=== PATIENT | female | born 1940 | race Hispanic/Latino ===

== ENCOUNTER 2023-03-16 16:41 | Emergency (ER) | payer OTHER, MEDICARE ==
[~2023-03-16] VITALS: Ht 154.9 cm; Wt 72.1 kg
[2023-03-16 16:46] VITALS: BP 182/78
[2023-03-16] MEDS ORDERED: ACETAMINOPHEN 325 MG TAB PO ONE (17:30)
[2023-03-16] MEDS ORDERED: NAPR-1192 PO (17:39)
== END 2023-03-16 18:23 | disposition home or self-care (01) ==
LOC: EDH 16:41
DX: S80.01XA Contusion of right knee, initial encounter (principal); S76.011A Strain of muscle, fascia and tendon of right hip, initial encounter; J45.909 Unspecified asthma, uncomplicated; K21.9 Gastro-esophageal reflux disease without esophagitis; W01.0XXA Fall on same level from slipping, tripping and stumbling without subsequent striking against object, initial encounter; Y93.89 Activity, other specified; Y92.89 Other specified places as the place of occurrence of the external cause; Y99.8 Other external cause status
CPT/HCPCS: 73562

== ENCOUNTER 2023-05-21 15:12 | Emergency (ER) | payer OTHER, MEDICARE ==
[~2023-05-21] VITALS: Ht 157.5 cm; Wt 63.5 kg
[~2023-05-21 15:12] MED LIST: NAPR-1192 PO
[2023-05-21] MEDS ORDERED: OCTYL 2-CYANOACRYLATE 1 EACH TP ONE (19:52)
[2023-05-21] MEDS ORDERED: BACITRACIN 1 EACH PACKET TP ONE (20:41)
[2023-05-21 20:59] VITALS: BP 146/62
[2023-05-21] MEDS ORDERED: ACETAMINOPHEN 325 MG TAB PO ONE (21:00)
== END 2023-05-21 21:12 | disposition home or self-care (01) ==
LOC: EDH 15:12
DX: S81.012A Laceration without foreign body, left knee, initial encounter (principal); E03.9 Hypothyroidism, unspecified; J45.909 Unspecified asthma, uncomplicated; F32.A Depression, unspecified; K21.9 Gastro-esophageal reflux disease without esophagitis; W01.10XA Fall on same level from slipping, tripping and stumbling with subsequent striking against unspecified object, initial encounter; Y93.89 Activity, other specified; Y92.89 Other specified places as the place of occurrence of the external cause; Y99.8 Other external cause status
CPT/HCPCS: 12002; 73562

== ENCOUNTER 2024-11-06 11:48 | Emergency (ER) | payer OTHER, MEDICARE ==
[~2024-11-06] VITALS: Ht 147.3 cm; Wt 49.9 kg
[2024-11-06] MEDS: morPHINE 2 MG SYG IVP ONE (12:23)
[2024-11-06] MEDS: ondanSETRON 4MG INJ IVP ONE (12:23)
--- NOTE | 2024-11-06 12:48 | HMCIMG ---
Exam Type: CT HEAD/BRAIN W/O CONTRAST Clinical Information: fall head injury Comparison: None CT Dose Index (CTDI): 57.33 mGy Dose Length Product (DLP): 956.79 total mGy-cm Findings: The examination shows atrophy. There is low attenuation throughout the periventricular white matter locations, consistent with chronic small vessel ischemic changes. No acute intra- or extra-axial fluid collections are seen. There is no evidence of acute or chronic hemorrhage. There is no mass effect or shift of midline structures. There are no areas to suggest acute infarct. The skull windows show no significant abnormalities. IMPRESSION: 1. ATROPHY AND CHRONIC SMALL VESSEL ISCHEMIC CHANGES. This study was performed using dose reduction techniques to include automated exposure control and/or adjustment of the mA and/or kV according to patient size.
--- NOTE | 2024-11-06 12:50 | HMCIMG ---
Exam Type: CT cervical spine without contrast Clinical Information: fall head injury Comparison: None Technique: Spiral axial images were performed from the base of the skull down to the thoracic vertebral bodies. Both sagittal and coronal reconstructions were performed. CT Dose Index (CTDI): 12.85 mGy Dose Length Product (DLP): 282.6 total Findings: There are degenerative changes. Degenerative disc disease is noted at multiple levels. There is adequate alignment and preservation of normal cervial lordosis. There is facet hypertrophy at multiple levels. IMPRESSION: Degenerative changes as noted. No acute pathology. No fractures seen. This study was performed using dose reduction techniques to include automated exposure control and/or adjustment of the mA and/or kV according to patient size.
--- NOTE | 2024-11-06 12:51 | HMCIMG ---
CT MAXILLOFACIAL W/O CONTRAST Indication: fall head injury Technique: Multiple thin section axial images were performed through the face and paranasal sinuses. Coronal reconstructions were performed in soft tissue and bone windows, as well as sagittal reconstructions. CT Dose Index (CTDI): 22.11 mGy Dose Length Product (DLP): 450.8 total mGy Findings: Paranasal sinuses are unremarkable. There is no evidence of facial fracture. Visualized soft tissues are unremarkable. Visualized intracranial contents are unremarkable. Impression: No acute abnormality of the face. This study was performed using dose reduction techniques to include automated exposure control and/or adjustment of the mA and/or kV according to patient size.
[2024-11-06] MEDS ORDERED: teTANUS/diphthERIA TOXOID [ADULT] 0.5 ML VIAL IM ONE (13:30)
--- NOTE | 2024-11-06 13:30 | HMCIMG ---
Exam Type: PELVIS 1-2VWS Clinical Information: fall Comparison: None Findings: There is osteopenia. The examination is otherwise unremarkable. No fractures or dislocations are seen. No radiopaque foreign bodies are noted. Soft tissues are preserved. IMPRESSION: Osteopenia. No acute pathology.
--- NOTE | 2024-11-06 13:32 | HMCIMG ---
Wrist 3 views- AP, lateral, oblique right History: fall Comparison: none Findings and impression: Osteopenia. Chondrocalcinosis. No acute fractures or dislocations.
--- NOTE | 2024-11-06 13:32 | HMCIMG ---
Exam Type: KNEE 3VWS LT Clinical Information: fall Comparison: None Findings: There is chondrocalcinosis. No fractures or dislocations are seen and the joint spaces are preserved. IMPRESSION: Chondrocalcinosis.
[2024-11-06] MEDS: ceFAZolin SODIUM 1 GM VIAL IVPB SCH (15:23)
--- NOTE | 2024-11-06 15:29 | ERN ---
General Chief Complaint: Mechanical Fall Stated Complaint: FALL Time Seen by MD: 11:52 Time Seen by Midlevel: 11:52 Source: patient History of Present Illness Initial Comments Patient is an 84-year-old female being brought in by EMS for evaluation following a mechanical ground level fall. Patient states she was going to a doctor's appointment when she accidentally tripped over her leg and fell onto the street. She has pain to her head and left knee. Denies any loss of consciousness. Denies being on blood thinners Allergies: Coded Allergies: No Known Allergies (Unverified Allergy, Unknown, 03/16/23) Home Meds Active Scripts Amoxicillin/Potassium Clav (Amox Tr-K Clv 875-125 mg Tab) 875 Mg-125 Mg Tablet, 1 EACH PO BID for 5 Days, #10 TAB 0 Refills Prov:HALI STOVER 11/06/24 Naproxen (Naproxen) 375 Mg Tablet, 375 MG PO BID for 10 Days, #20 TAB 0 Refills Prov:PERI BELL MD 03/16/23 Past Medical History Past Medical History: Arthritis Past Surgical History: Other Surgical History Other: HERNIA Social History Social History: Negative, Lives with family ROS Dictation CONSTITUTIONAL: Negative except for HPI HEAD/FACE: Negative except for HPI EENT: Negative except for HPI RESPIRATORY: Negative except for HPI GASTROINTESTINAL/ABDOMINAL: Negative except for HPI GENITOURINARY: Negative except for HPI MUSCULOSKELETAL: Negative except for HPI INTEGUMENTARY: Negative except for HPI NEUROLOGICAL/PSYCH: Negative except for HPI HEMATOLOGIC/LYMPHATIC: Negative except for HPI All Systems Negative, Except as noted above. 13 point review of systems assessed and all negative except for above. Physical Exam Physical Exam Dictation Vital Signs reviewed General Appearance: Alert, oriented x 3, no acute distress, well developed, nourished. Head and Face: Left forehead contusion Eyes: PERRL, pink conjunctivas, eyelid no trauma, anterior chamber with arcus senilis. Ears: Pinnas intact and no signs of trauma or erythema ear canals clear and no discharge TM no erythema Nose: No discharge, no bleeding. Oropharynx: Mouth normal, tongue pink, pharynx clear,no erythema, tonsils no exudates, no abscesses noted, mucous membrane moist Neck: Supple, non-tender, no thyromegaly, no masses, no JVD, no bruits Breast:Deferred Chest:No tenderness, no crepitus, no paradoxical movement, no retractions Lungs:Clear, well-ventilated, symmetric, no rales, no wheezing, no rhonchi, no stridor, good breath sounds bilaterally Heart: Regular rate, regular rhythm, no murmur, no gallops Vascular: no peripheral edema, Abdomen: Soft, positive bowel sounds, nondistended, no guarding, nontender, no rebound, no masses no hepatomegaly, no splenomegaly, no Thomas's sign, no hernias. Rectal: Deferred Genital: Deferred Neurological: Normal speech, motor function intact, sensory function intact Musculoskeletal: Neck nontender, full range of motion, back nontender, full range of motion, Extremities: Swelling and tenderness to the left wrist Skin: 2 cm linear laceration to the left forehead, 8 cm jagged laceration to the left knee. Lymphatic: Deferred MDM MDM: Differential diagnosis: There are no social concerns with this patient. Prescription drug management Prescriptions will include: Medical management and examination interpretation discussions were had by me with other qualified healthcare professionals as indicated for the patient's care. ED Course Orders Procedure Category Date Status Time Ct Cervical Spine W/O CT 11/06/24 Resulted Contrast 12:01 Ct Head/Brain W/O CT 11/06/24 Resulted Contrast 12:01 Ct Maxillofacial W/O CT 11/06/24 Resulted Contrast 12:01 Knee 3vws Lt RAD 11/06/24 Resulted 12:01 Pelvis 1-2vws RAD 11/06/24 Resulted 12:01 Wrist Comp 3+Vws Lt RAD 11/06/24 Resulted 12:01 Morphine 2mg Syg PHA 11/06/24 Complete (Morphine 2mg Syg) 12:30 Ondansetron 4mg Inj PHA 11/06/24 Complete (Zofran 4mg Inj) 12:30 Tetanus,Diphtheria PHA 11/06/24 Complete Tox [Adult] (Diphther 13:30 Cefazolin Sodium 1 Gm PHA 11/06/24 Complete Vial (Ancef 1 Gm V 15:30 Current Medications Medications (Trade) Dose Ordered Sig/Grupo Route PRN Reason Start Time Stop Time Status Last Admin Dose Admin Cefazolin Sodium (ANCEF 1 gm vial) 1 gm ONCE IVPB 11/06/24 15:30 11/06/24 16:34 DC 11/06/24 15:23 Morphine Sulfate (morPHINE 2MG SYG) 2 mg ONCE ONCE IVP 11/06/24 12:30 11/06/24 12:31 DC 11/06/24 12:23 Ondansetron HCl (zoFRAN 4MG INJ) 4 mg ONCE ONCE IVP 11/06/24 12:30 11/06/24 12:31 DC 11/06/24 12:23 Tetanus/ Diphtheria Toxoids Adsorbed (DiphthERIA-teTANUS TOXOID [ADULT]/ DECAVAC) 0.5 ml ONCE ONCE IM 11/06/24 13:30 11/06/24 13:25 DC Vital Signs Date Time Temp Pulse Resp B/P (MAP) Pulse Ox O2 Delivery O2 Flow Rate FiO2 11/06/24 15:31 98.2 81 14 145/78 98 Room Air* 0 11/06/24 12:55 98.2 84 14 153/59 100 Room Air* 0 11/06/24 11:49 98.2 92 14 174/74 99 Room Air 0 11/06/24 11:49 98.2 92 14 174/74 99 Room Air* 0 [address] [place] [id number] [place], [place] [id number] IMAGING REPORT Signed PATIENT: JOSE ELIAS CHENG MR#: [id number] : 1940 SEX: F AGE: 84 LOCATION: [facility] ORDER 1203 STATUS: [facility] REPORT#: [id number] SERVICE 1201 REASON: fall ORDERING PHYSICIAN: HALI STOVER PROCEDURE: WRST 3V LT - WRIST COMP 3+VWS LT Wrist 3 views- AP, lateral, oblique right History: fall Comparison: none Findings and impression: Osteopenia. Chondrocalcinosis. No acute fractures or dislocations. DICTATED BY: LARA MUELLER MD DATE: 11/06/24 1327 ELECTRONICALLY SIGNED BY: LARA MUELLRE MD DATE: 11/06/24 13[address] [place] [address] [place] [id number] IMAGING REPORT Signed PATIENT: JOSE ELIAS CHENG MR#: [id number] : 1940 SEX: F AGE: 84 LOCATION: [facility] ORDER 02 STATUS: [facility] REPORT#: [id number] SERVICE 120 REASON: fall ORDERING PHYSICIAN: HALI STOVER PROCEDURE: PELVIS - PELVIS 1-2VWS Exam Type: PELVIS 1-2VWS Clinical Information: fall Comparison: None Findings: There is osteopenia. The examination is otherwise unremarkable. No fractures or dislocations are seen. No radiopaque foreign bodies are noted. Soft tissues are preserved. IMPRESSION: Osteopenia. No acute pathology. DICTATED BY: LARA MUELLER MD DATE: 11/06/24 1327 ELECTRONICALLY SIGNED BY: LARA MUELLER MD DATE: 11/06/24 [address] [place] [phone] IMAGING REPORT Signed PATIENT: JOSE ELIAS CHENG MR#: [id number] : 1940 SEX: F AGE: 84 LOCATION: [facility] ORDER 120 STATUS: [facility] REPORT#: [id number] SERVICE 120 REASON: fall head injury ORDERING PHYSICIAN: HALI STOVER PROCEDURE: MAXFACI WO - CT MAXILLOFACIAL W/O CONTRAST CT MAXILLOFACIAL W/O CONTRAST Indication: fall head injury Technique: Multiple thin section axial images were performed through the face and paranasal sinuses. Coronal reconstructions were performed in soft tissue and bone windows, as well as sagittal reconstructions. CT Dose Index (CTDI): 22.11 mGy Dose Length Product (DLP): 450.8 total mGy Findings: Paranasal sinuses are unremarkable. There is no evidence of facial fracture. Visualized soft tissues are unremarkable. Visualized intracranial contents are unremarkable. Impression: No acute abnormality of the face. This study was performed using dose reduction techniques to include automated exposure control and/or adjustment of the mA and/or kV according to patient size. DICTATED BY: LARA MUELLER MD DATE: 11/06/24 1249 ELECTRONICALLY SIGNED BY: LARA MUELLER MD DATE: 11/06/24 125[address] [place] [address] [place] [id number] IMAGING REPORT Signed PATIENT: JOSE ELIAS CHENG MR#: [id number] : 1940 SEX: F AGE: 84 LOCATION: [facility] ORDER 1203 STATUS: [facility] REPORT#: [id number] SERVICE 120 REASON: fall ORDERING PHYSICIAN: HALI STOVER PROCEDURE: KNEE 3V LT - KNEE 3VWS LT Exam Type: KNEE 3VWS LT Clinical Information: fall Comparison: None Findings: There is chondrocalcinosis. No fractures or dislocations are seen and the joint spaces are preserved. IMPRESSION: Chondrocalcinosis. DICTATED BY: LARA MUELLER MD DATE: 11/06/24 1328 ELECTRONICALLY SIGNED BY: LARA MUELLER MD DATE: 11/06/24 1332 [place] [address] [id number] IMAGING REPORT Signed PATIENT: JOSE ELIAS CHENG MR#: [id number] : 1940 SEX: F AGE: 84 LOCATION: ED ORDER 120 STATUS: [facility] REPORT#: [id number] SERVICE 120 REASON: fall head injury ORDERING PHYSICIAN: HALI STOVER PROCEDURE: HEAD WO - CT HEAD/BRAIN W/O CONTRAST Exam Type: CT HEAD/BRAIN W/O CONTRAST Clinical Information: fall head injury Comparison: None CT Dose Index (CTDI): 57.33 mGy Dose Length Product (DLP): 956.79 total mGy-cm Findings: The examination shows atrophy. There is low attenuation throughout the periventricular white matter locations, consistent with chronic small vessel ischemic changes. No acute intra- or extra-axial fluid collections are seen. There is no evidence of acute or chronic hemorrhage. There is no mass effect or shift of midline structures. There are no areas to suggest acute infarct. The skull windows show no significant abnormalities. IMPRESSION: 1. ATROPHY AND CHRONIC SMALL VESSEL ISCHEMIC CHANGES. This study was performed using dose reduction techniques to include automated exposure control and/or adjustment of the mA and/or kV according to patient size. DICTATED BY: LARA MUELLER MD DATE: 11/06/241244 ELECTRONICALLY SIGNED BY: LARA MUELLER MD DATE: 11/06/241247 [place] [address] [place] [id number] IMAGING REPORT Signed PATIENT: JOSE ELIAS CHENG MR#: [id number] : 1940 SEX: F AGE: 84 LOCATION: [facility] ORDER 120 STATUS: REG REPORT#: [id number] SERVICE 120 REASON: fall head injury ORDERING PHYSICIAN: HALI STOVER PROCEDURE: C SPIN WO - CT CERVICAL SPINE W/O CONTRAST Exam Type: CT cervical spine without contrast Clinical Information: fall head injury Comparison: None Technique: Spiral axial images were performed from the base of the skull down to the thoracic vertebral bodies. Both sagittal and coronal reconstructions were performed. CT Dose Index (CTDI): 12.85 mGy Dose Length Product (DLP): 282.6 total Findings: There are degenerative changes. Degenerative disc disease is noted at multiple levels. There is adequate alignment and preservation of normal cervial lordosis. There is facet hypertrophy at multiple levels. IMPRESSION: Degenerative changes as noted. No acute pathology. No fractures seen. This study was performed using dose reduction techniques to include automated exposure control and/or adjustment of the mA and/or kV according to patient size. DICTATED BY: LARA MUELLER MD DATE: 11/06/241247 ELECTRONICALLY SIGNED BY: LARA MUELLER MD DATE: 11/06/24 125 Procedure Dictation Procedure Name: Laceration Repair Indication: Reduce risk of infection Location: Left knee, 8 cm jagged laceration Pre-Procedure Diagnosis: Laceration Post-Procedure Diagnosis: Repaired Laceration Informed consent was obtained before procedure started. PROCEDURE: The appropriate timeout was taken. The area was prepped and draped in the usual sterile fashion. Local anesthesia was achieved using 5cc of Lidocaine 1% without epinephrine. The wound was copiously irrigated. 13 3-0 Ethilon simple interrupted sutures were placed. Estimated blood loss was less than 0.5 mL. A dressing was applied to the area and anticipatory guidance, as well as standard post-procedure care, was explained. Return precautions are given. The patient tolerated the procedure well without complications. Follow-up visit set for suture removal and evaluation of the laceration. Procedure Name: Laceration Repair Indication: Reduce risk of infection Location: Left forehead measuring 2 cm Pre-Procedure Diagnosis: Laceration Post-Procedure Diagnosis: Repaired Laceration Informed consent was obtained before procedure started. PROCEDURE: The appropriate timeout was taken. The area was prepped and draped in the usual sterile fashion. Local anesthesia was achieved using 1cc of Lidocaine 1% without epinephrine. The wound was copiously irrigated. 3 5-0 Ethilon simple interrupted sutures were placed. Estimated blood loss was less than 0.5 mL. A dressing was applied to the area and anticipatory guidance, as well as standard post-procedure care, was explained. Return precautions are given. The patient tolerated the procedure w ell without complications. Follow-up visit set for suture removal and evaluation of the laceration. DX & DISP Disposition: Discharge Departure Impression: Primary Impression: Fall Additional Impressions: Laceration of left knee, Forehead laceration Condition: Stable Scripts Amoxicillin/Potassium Clav (Amox Tr-K Clv 875-125 mg Tab) 875 Mg-125 Mg Tablet 1 EACH PO BID for 5 Days, #10 TAB 0 Refills Prov: HALI STOVER 11/06/24 Additional Instructions: Your left knee laceration was successfully repaired with 13 sutures. Your forehead laceration was successfully repaired with three sutures. The sutures will need to be removed in 7-10 days. The removal of your sutures may be performed by you primary care doctor or you may return to the ER for further evaluation. Referrals: TIBURCIO BEVERLY MD (PCP) Time of Disposition: 15:31 I have reviewed the case, and I agree with, Diagnosis and Plan I performed the substantive portion of the visit. I have reviewed and personally made and approve the management plan that is documented in the note by myself or the JUANITA. I acknowledge for responsibility for the patient's management plan. HALI STOVER Nov 06, 2024 15:29
[2024-11-06 15:31] VITALS: BP 145/78; PULSE 81; RESP 14; TEMP 98.2; O2SAT 98
[2024-11-06] MEDS ORDERED: AMOX1TAB16 PO (15:39)
== END 2024-11-06 16:33 | disposition home or self-care (01) ==
LOC: EDH 11:48
DX: S81.012A Laceration without foreign body, left knee, initial encounter (principal); S01.81XA Laceration without foreign body of other part of head, initial encounter; M25.562 Pain in left knee; W01.0XXA Fall on same level from slipping, tripping and stumbling without subsequent striking against object, initial encounter; Y93.89 Activity, other specified; Y92.89 Other specified places as the place of occurrence of the external cause; Y99.8 Other external cause status
CPT/HCPCS: 99285; 70450; 96365; 29505; 96375; 73562; 72170; 73110; 72125; 70486; 12011; 12004; J0690; J2270; J2405